=== PATIENT | male | born 1955 | race Caucasian/White ===

== ENCOUNTER 2023-03-31 09:23 | Inpatient (IN) | payer MEDICARE ==
[~2023-03-31] VITALS: Ht 190.5 cm; Wt 113.1 kg
[2023-03-31 09:58] LABS: BASOPHILS # (AUTO) 0.1 (0.0-0.1); BASOPHILS % 0.5 % (0.0-1.0); EOSINOPHILS # (AUTO) 0.1 (0.0-0.4); EOSINOPHILS % 0.7 % (0.0-6.0); HEMATOCRIT 36.4 % (38.2-49.6); HEMOGLOBIN 11.8 g/dL (14.0-18.0); LYMPHOCYTES # (AUTO) 1.6 (1.0-3.2); MEAN CORPUSCULAR HEMOGLOBIN 29.9 pg (28-32); MEAN CORPUSCULAR HGB CONC 32.4 g/dL (31-35); MEAN CORPUSCULAR VOLUME 92.4 fL (81-99); MONOCYTES # (AUTO) 1.8 (0.2-0.8); MONOCYTES % 10.5 % (4.4-11.3); NEUTROPHILS # (AUTO) 13.5 (2.1-6.9); NEUTROPHILS % 77.8 % (38.7-80.0); PLATELET COUNT 95 x10e3/uL (140-360); RED BLOOD COUNT 3.94 x10e6/uL (4.3-5.7); RED CELL DISTRIBUTION WIDTH 13.1 % (11.7-14.4)
[2023-03-31 10:16] LABS: ALBUMIN 3.4 g/dL (3.5-5.0); ALBUMIN/GLOBULIN RATIO 0.8 (0.8-2.0); ANION GAP 15.2 mmol/L (8-16); CALCIUM 9.3 mg/dL (8.4-10.2); CREATININE, SERUM 2.02 mg/dL (0.72-1.25); POTASSIUM 4.2 mmol/L (3.5-5.1)
[2023-03-31 10:25] LABS: INR 1.34; PROTHROMBIN TIME 17.1 seconds (11.9-14.5)
[2023-03-31 10:26] LABS: PARTIAL THROMBOPLASTIN TIME 34.6 seconds (23.8-35.5)
[2023-03-31] MEDS ORDERED: HEPARIN SOD (PORCINE) 5,000 UNIT/ML VIAL IV ONE (11:00)
[2023-03-31] MEDS ORDERED: SODIUM CHLORIDE FLUSH 10 ML SYR INJ PRN (11:00)
[2023-03-31] MEDS ORDERED: SODIUM CHLORIDE 0.9% 1000ML 1,000 ML ONE (11:12)
[2023-03-31] MEDS ORDERED: HEPARIN 25,000 UNIT DRIP IV ONE (11:13)
[2023-03-31] MEDS: HEPARIN 25,000 UNIT/D5W 250ML 1,500 UNIT in DEXTROSE 5% 250ML 250 ML IV SCH (11:33)
[2023-03-31] MEDS: HYDROCODONE/APAP 5MG-325MG TAB PO PRN (11:34)
[2023-03-31] MEDS: Morphine 2mg Syringe 2 MG/ML SYR IV PRN ×3 (11:34→18:54)
[2023-03-31] MEDS: ONDANSETRON HCL INJ 2MG/ML 2ML 2 MG/ML VIAL IV PRN ×2 (11:34→14:26)
[2023-03-31 14:08] VITALS: BP 109/71; PULSE 60; RESP 18; TEMP 98.1; O2SAT 99
[2023-03-31] MEDS ORDERED: ACETAMINOPHEN 325 MG TAB PO PRN (14:45)
[2023-03-31] MEDS ORDERED: CLONIDINE HCL 0.1 MG TAB PO PRN (14:45)
[2023-03-31] MEDS ORDERED: TENORMIN25 MG PO (14:55)
[2023-03-31 15:04] VITALS: BP 109/71; PULSE 60; RESP 20; TEMP 98.1; O2SAT 99
[2023-03-31 15:19] VITALS: BP 109/71; PULSE 60; RESP 20; TEMP 98.1; O2SAT 99
[2023-03-31 15:49] VITALS: BP 125/67; PULSE 60; RESP 18; TEMP 98.1; O2SAT 96
[2023-03-31] MEDS ORDERED: SODIUM CHLORIDE 0.9% 250ML 250 ML ONE (16:18)
[2023-03-31] MEDS ORDERED: LORAZEPAM 0.5 MG TAB PO PRN (16:30)
[2023-03-31] MEDS ORDERED: MELATONIN 5 MG TABLET PO PRN (16:30)
[2023-03-31 16:46] LABS: CLARITY,URINE SL CLOUDY (CLEAR); COLOR,URINE AMBER (YELLOW); KETONES,URINE NEGATIVE (NEGATIVE); LEUKOCYTE ESTERASE ,URINE TRACE (NEGATIVE); NITRITE,URINE NEGATIVE (NEGATIVE); PROTEIN,URINE DIPSTICK 2+ (NEGATIVE); URINE UROBILINOGEN 2 mg/dL (0.2 - 1)
[2023-03-31 16:57] LABS: BACTERIA,URINE FEW /HPF; RBC,URINE >50 /HPF (0-5); WBC,URINE (MAN) 0-5 /HPF (0-5)
[2023-03-31 20:02] VITALS: BP 123/96; PULSE 64; RESP 18; TEMP 98.6; O2SAT 99
[2023-03-31] MEDS: ATENOLOL 50 MG TAB PO SCH (20:23)
[2023-04-01] VITALS (7 sets, daily range): BP systolic 108–132; BP diastolic 63–75; PULSE 54–102; RESP 16–20; TEMP 97.6–98.9; O2SAT 97–100
[2023-04-01] MEDS: Morphine 2mg Syringe 2 MG/ML SYR IV PRN ×2 (03:57→10:15)
[2023-04-01 07:22] LABS: BASOPHILS # (AUTO) 0.1 (0.0-0.1); BASOPHILS % 0.6 % (0.0-1.0); EOSINOPHILS # (AUTO) 0.3 (0.0-0.4); EOSINOPHILS % 2.1 % (0.0-6.0); HEMOGLOBIN 9.6 g/dL (14.0-18.0); LYMPHOCYTES # (AUTO) 1.7 (1.0-3.2); LYMPHOCYTES % 13.4 % (18.0-39.1); MEAN CORPUSCULAR HEMOGLOBIN 29.8 pg (28-32); MEAN CORPUSCULAR VOLUME 93.2 fL (81-99); MONOCYTES # (AUTO) 1.4 (0.2-0.8); MONOCYTES % 11.5 % (4.4-11.3); NEUTROPHILS # (AUTO) 8.9 (2.1-6.9); NEUTROPHILS % 71.2 % (38.7-80.0); PLATELET COUNT 84 x10e3/uL (140-360); RED BLOOD COUNT 3.22 x10e6/uL (4.3-5.7); RED CELL DISTRIBUTION WIDTH 13.2 % (11.7-14.4)
[2023-04-01 07:38] LABS: ALBUMIN 2.7 g/dL (3.5-5.0); ALBUMIN/GLOBULIN RATIO 0.7 (0.8-2.0); ANION GAP 13.4 mmol/L (8-16); CALCIUM 8.4 mg/dL (8.4-10.2); CREATININE, SERUM 1.89 mg/dL (0.72-1.25); POTASSIUM 4.4 mmol/L (3.5-5.1)
[2023-04-01] MEDS: HEPARIN 25,000 UNIT/D5W 250ML 1,500 UNIT in DEXTROSE 5% 250ML 250 ML IV SCH (10:20)
[2023-04-01] MEDS: DOCUSATE SODIUM 100 MG CAP PO SCH (16:23)
[2023-04-01] MEDS: HYDROCODONE/APAP 5MG-325MG TAB PO PRN ×2 (16:24→21:13)
[2023-04-01] MEDS: ATENOLOL 50 MG TAB PO SCH ×2 (21:00→21:14)
[2023-04-02] VITALS (8 sets, daily range): BP systolic 116–151; BP diastolic 60–86; PULSE 55–75; RESP 16–20; TEMP 97.5–98.5; O2SAT 97–100
[2023-04-02] MEDS: HYDROCODONE/APAP 5MG-325MG TAB PO PRN ×3 (04:56→21:26)
[2023-04-02] MEDS: HEPARIN 25,000 UNIT/D5W 250ML 1,500 UNIT in DEXTROSE 5% 250ML 250 ML IV SCH ×2 (05:04→21:20)
[2023-04-02 06:50] LABS: BASOPHILS # (AUTO) 0.1 (0.0-0.1); BASOPHILS % 0.8 % (0.0-1.0); EOSINOPHILS # (AUTO) 0.3 (0.0-0.4); HEMOGLOBIN 10.3 g/dL (14.0-18.0); LYMPHOCYTES # (AUTO) 1.3 (1.0-3.2); LYMPHOCYTES % 12.2 % (18.0-39.1); MEAN CORPUSCULAR HEMOGLOBIN 29.8 pg (28-32); MEAN CORPUSCULAR HGB CONC 33.2 g/dL (31-35); MEAN CORPUSCULAR VOLUME 89.6 fL (81-99); MONOCYTES # (AUTO) 1.2 (0.2-0.8); MONOCYTES % 10.9 % (4.4-11.3); NEUTROPHILS # (AUTO) 7.5 (2.1-6.9); NEUTROPHILS % 71.3 % (38.7-80.0); PLATELET COUNT 134 x10e3/uL (140-360); RED BLOOD COUNT 3.46 x10e6/uL (4.3-5.7); RED CELL DISTRIBUTION WIDTH 13.1 % (11.7-14.4)
[2023-04-02 06:53] LABS: ANION GAP 12.9 mmol/L (8-16); CALCIUM 8.7 mg/dL (8.4-10.2); CREATININE, SERUM 1.73 mg/dL (0.72-1.25); POTASSIUM 3.9 mmol/L (3.5-5.1)
[2023-04-02] MEDS: DOCUSATE SODIUM 100 MG CAP PO SCH ×2 (09:47→16:46)
[2023-04-02] MEDS ORDERED: TRAZODONE HCL 50 MG TAB PO PRN (19:00)
[2023-04-02] MEDS: ATENOLOL 50 MG TAB PO SCH (21:10)
[2023-04-03] VITALS (7 sets, daily range): BP systolic 111–130; BP diastolic 52–91; PULSE 55–65; RESP 16–18; TEMP 97.7–98.3; O2SAT 98–100
[2023-04-03 06:50] LABS: BASOPHILS # (AUTO) 0.1 (0.0-0.1); EOSINOPHILS # (AUTO) 0.3 (0.0-0.4); EOSINOPHILS % 3.2 % (0.0-6.0); HEMATOCRIT 29.3 % (38.2-49.6); HEMOGLOBIN 9.6 g/dL (14.0-18.0); LYMPHOCYTES # (AUTO) 1.6 (1.0-3.2); LYMPHOCYTES % 14.9 % (18.0-39.1); MEAN CORPUSCULAR HEMOGLOBIN 29.6 pg (28-32); MEAN CORPUSCULAR HGB CONC 32.8 g/dL (31-35); MEAN CORPUSCULAR VOLUME 90.4 fL (81-99); MONOCYTES # (AUTO) 1.1 (0.2-0.8); MONOCYTES % 9.9 % (4.4-11.3); NEUTROPHILS # (AUTO) 7.4 (2.1-6.9); NEUTROPHILS % 68.9 % (38.7-80.0); PLATELET COUNT 168 x10e3/uL (140-360); RED BLOOD COUNT 3.24 x10e6/uL (4.3-5.7); RED CELL DISTRIBUTION WIDTH 12.8 % (11.7-14.4)
[2023-04-03 07:23] LABS: ANION GAP 11.3 mmol/L (8-16); CALCIUM 8.7 mg/dL (8.4-10.2); CREATININE, SERUM 1.46 mg/dL (0.72-1.25); POTASSIUM 4.3 mmol/L (3.5-5.1)
[2023-04-03] MEDS: DOCUSATE SODIUM 100 MG CAP PO SCH ×2 (09:00→16:29)
[2023-04-03] MEDS: HEPARIN 25,000 UNIT/D5W 250ML 1,500 UNIT in DEXTROSE 5% 250ML 250 ML IV SCH (16:30)
[2023-04-03] MEDS: ATENOLOL 50 MG TAB PO SCH (21:47)
[2023-04-03] MEDS: HYDROCODONE/APAP 5MG-325MG TAB PO PRN (22:16)
[2023-04-04] VITALS (8 sets, daily range): BP systolic 122–143; BP diastolic 67–87; PULSE 53–66; RESP 18–19; TEMP 97.6–98.3; O2SAT 97–100
[2023-04-04 05:58] LABS: BASOPHILS # (AUTO) 0.1 (0.0-0.1); BASOPHILS % 0.9 % (0.0-1.0); EOSINOPHILS # (AUTO) 0.4 (0.0-0.4); EOSINOPHILS % 3.9 % (0.0-6.0); HEMATOCRIT 30.2 % (38.2-49.6); HEMOGLOBIN 9.8 g/dL (14.0-18.0); LYMPHOCYTES # (AUTO) 1.8 (1.0-3.2); MEAN CORPUSCULAR HEMOGLOBIN 29.2 pg (28-32); MEAN CORPUSCULAR HGB CONC 32.5 g/dL (31-35); MEAN CORPUSCULAR VOLUME 89.9 fL (81-99); MONOCYTES # (AUTO) 1.1 (0.2-0.8); MONOCYTES % 9.2 % (4.4-11.3); NEUTROPHILS # (AUTO) 7.7 (2.1-6.9); NEUTROPHILS % 67.1 % (38.7-80.0); PLATELET COUNT 191 x10e3/uL (140-360); RED BLOOD COUNT 3.36 x10e6/uL (4.3-5.7); RED CELL DISTRIBUTION WIDTH 13.2 % (11.7-14.4)
[2023-04-04 06:24] LABS: ANION GAP 11.3 mmol/L (8-16); CALCIUM 8.9 mg/dL (8.4-10.2); CREATININE, SERUM 1.48 mg/dL (0.72-1.25); POTASSIUM 4.3 mmol/L (3.5-5.1)
[2023-04-04] MEDS: HEPARIN 25,000 UNIT/D5W 250ML 1,500 UNIT in DEXTROSE 5% 250ML 250 ML IV SCH ×4 (07:14→23:27)
[2023-04-04] MEDS: DOCUSATE SODIUM 100 MG CAP PO SCH ×2 (09:36→16:45)
[2023-04-04] MEDS ORDERED: HEPARIN 25,000 UNIT/D5W 250ML 1,500 UNIT in DEXTROSE 5% 250ML 250 ML IV SCH (12:00)
[2023-04-04] MEDS: HYDROCODONE/APAP 5MG-325MG TAB PO PRN ×2 (13:12→20:05)
[2023-04-04] MEDS ORDERED: APIXABAN 5 MG TABLET PO SCH (17:00)
[2023-04-05 01:59] VITALS: BP 122/77; PULSE 58; RESP 18; TEMP 97.4; O2SAT 99
[2023-04-05 05:10] VITALS: BP 144/71; PULSE 64; RESP 17; TEMP 97.7; O2SAT 100
[2023-04-05 05:31] LABS: BASOPHILS # (AUTO) 0.1 (0.0-0.1); EOSINOPHILS # (AUTO) 0.4 (0.0-0.4); EOSINOPHILS % 3.8 % (0.0-6.0); HEMATOCRIT 31.2 % (38.2-49.6); HEMOGLOBIN 10.2 g/dL (14.0-18.0); LYMPHOCYTES # (AUTO) 2.2 (1.0-3.2); LYMPHOCYTES % 19.2 % (18.0-39.1); MEAN CORPUSCULAR HEMOGLOBIN 29.6 pg (28-32); MEAN CORPUSCULAR HGB CONC 32.7 g/dL (31-35); MEAN CORPUSCULAR VOLUME 90.4 fL (81-99); MONOCYTES # (AUTO) 1.1 (0.2-0.8); MONOCYTES % 9.1 % (4.4-11.3); NEUTROPHILS # (AUTO) 7.2 (2.1-6.9); NEUTROPHILS % 62.2 % (38.7-80.0); PLATELET COUNT 180 x10e3/uL (140-360); RED BLOOD COUNT 3.45 x10e6/uL (4.3-5.7); RED CELL DISTRIBUTION WIDTH 13.2 % (11.7-14.4)
[2023-04-05 05:52] LABS: ALBUMIN 2.8 g/dL (3.5-5.0); ALBUMIN/GLOBULIN RATIO 0.7 (0.8-2.0); ANION GAP 10.4 mmol/L (8-16); CALCIUM 8.8 mg/dL (8.4-10.2); CREATININE, SERUM 1.52 mg/dL (0.72-1.25); POTASSIUM 4.4 mmol/L (3.5-5.1)
[2023-04-05 06:06] LABS: THYROID STIMULATING HORMONE 0.991 uIU/mL (0.350-4.940)
[2023-04-05 08:45] VITALS: BP 126/64; PULSE 64; RESP 18; TEMP 98; O2SAT 98
[2023-04-05 09:14] VITALS: BP 126/64; PULSE 64; RESP 18; TEMP 98; O2SAT 98
[2023-04-05] MEDS: DOCUSATE SODIUM 100 MG CAP PO SCH (10:00)
[2023-04-05] MEDS: HYDROCODONE/APAP 5MG-325MG TAB PO PRN (10:48)
[2023-04-05] MEDS ORDERED: LEVOFLOXACIN 250MG/D5W 50ML 50 ML IV SCH (11:00)
[2023-04-05] MEDS ORDERED: ONDANSETRON HCL 4 MG ORAL DISINTEGRATING TAB PO PRN (11:45)
[2023-04-05 11:51] VITALS: BP 143/76; PULSE 67; RESP 18; TEMP 97.2; O2SAT 99
[2023-04-05] MEDS ORDERED: LEVOFLOXACIN250 MG PO (12:12)
[2023-04-05] MEDS ORDERED: ELIQUIS5 MG PO (12:12)
[2023-04-05] MEDS ORDERED: APIXABAN 5 MG TABLET PO SCH (17:00)
== END 2023-04-05 13:10 | disposition home or self-care (01) | DRG 300 ==
LOC: ER 09:40 → ERHOLD 10:58 → MED/SURG3 14:00 → OBSVTOIN 04-02 09:48
PROVIDERS: ADMIT Internal Medicine; ATTEND Internal Medicine
DX: I82.411 Acute embolism and thrombosis of right femoral vein (principal); E87.1 Hypo-osmolality and hyponatremia; T83.511A Infection and inflammatory reaction due to indwelling urethral catheter, initial encounter; N13.2 Hydronephrosis with renal and ureteral calculous obstruction; N39.0 Urinary tract infection, site not specified; N17.9 Acute kidney failure, unspecified; I82.431 Acute embolism and thrombosis of right popliteal vein; I12.9 Hypertensive chronic kidney disease with stage 1 through stage 4 chronic kidney disease, or unspecified chronic kidney disease; N18.30 Chronic kidney disease, stage 3 unspecified; R16.1 Splenomegaly, not elsewhere classified; B96.89 Other specified bacterial agents as the cause of diseases classified elsewhere; N40.1 Benign prostatic hyperplasia with lower urinary tract symptoms; R33.8 Other retention of urine; R97.20 Elevated prostate specific antigen [PSA]; D69.6 Thrombocytopenia, unspecified; D63.1 Anemia in chronic kidney disease; E66.9 Obesity, unspecified; Z68.31 Body mass index [BMI] 31.0-31.9, adult; Z20.822 Contact with and (suspected) exposure to COVID-19; Z79.01 Long term (current) use of anticoagulants; Z96.641 Presence of right artificial hip joint
CPT/HCPCS: 36415; 74176; 80048; 80053; 81001; 84443; 85025; 85610; 85730; 87086; 87186; 93005; 93306; 93971; 96361; 96365; 99284; G0378; J0696; J1644; J1956; J2270; J2405; J7030; J7050

== ENCOUNTER 2023-09-21 07:12 | Inpatient (IN) | payer MEDICARE ==
[2023-09-20 11:10] LABS: BASOPHILS # (AUTO) 0.1 (0.0-0.1); BASOPHILS % 0.9 % (0.0-1.0); EOSINOPHILS # (AUTO) 0.3 (0.0-0.4); HEMATOCRIT 41.5 % (38.2-49.6); HEMOGLOBIN 13.8 g/dL (14.0-18.0); LYMPHOCYTES # (AUTO) 1.9 (1.0-3.2); LYMPHOCYTES % 17.8 % (18.0-39.1); MEAN CORPUSCULAR HEMOGLOBIN 29.5 pg (28-32); MEAN CORPUSCULAR HGB CONC 33.3 g/dL (31-35); MEAN CORPUSCULAR VOLUME 88.7 fL (81-99); MONOCYTES # (AUTO) 0.7 (0.2-0.8); MONOCYTES % 6.3 % (4.4-11.3); NEUTROPHILS # (AUTO) 7.4 (2.1-6.9); NEUTROPHILS % 71.1 % (38.7-80.0); PLATELET COUNT 151 x10e3/uL (140-360); RED BLOOD COUNT 4.68 x10e6/uL (4.3-5.7); RED CELL DISTRIBUTION WIDTH 14.6 % (11.7-14.4)
[2023-09-20 13:34] LABS: ANION GAP 12.1 mmol/L (8-16); CALCIUM 9.1 mg/dL (8.4-10.2); CREATININE, SERUM 1.26 mg/dL (0.72-1.25); POTASSIUM 4.1 mmol/L (3.5-5.1)
[~2023-09-21] VITALS: Ht 185.4 cm; Wt 113.4 kg
[~2023-09-21 07:12] MED LIST: ELIQUIS5 MG PO; FINASTERIDE5 MG PO; FLOMAX0.4 MG PO; IRBESARTAN150 MG PO; LEVOFLOXACIN250 MG PO; TENORMIN25 MG PO
[2023-09-21] MEDS ORDERED: SODIUM CHLORIDE 0.9% 1000ML 1,000 ML ONE (07:21)
[2023-09-21] MEDS ORDERED: GENTAMICIN 80MG/NS 100 ML 200 ML IV ONE (07:36)
[2023-09-21] MEDS ORDERED: LEVOFLOXACIN 500MG/D5W 100ML 100 ML IV ONE (07:37)
[2023-09-21] MEDS ORDERED: IOPAMIDOL 610MG/1ML 300 MG/ML VIAL IV ONE (10:52)
[2023-09-21] MEDS ORDERED: KETOROLAC TROMETHAMINE 30 MG/ML VIAL ONE (11:50)
[2023-09-21] MEDS ORDERED: LIDOCAINE HCL 2% LOCAL INJ 5 ML SDV VIAL INJ ONE (11:50)
[2023-09-21] MEDS ORDERED: SEVOFLURANE INHAL SOLN 250 ML PEN BTL ONE (11:50)
[2023-09-21] MEDS ORDERED: DEXAMETHASONE SOD PHOS INJ 4 MG/ML SDV ONE (11:50)
[2023-09-21] MEDS ORDERED: EPHEDRINE SULFATE INJ 50 MG/ML VIAL ONE (11:50)
[2023-09-21] MEDS ORDERED: PROPOFOL IV EMULSION 10 MG/ML 20 ML VIAL ONE (11:50)
[2023-09-21] MEDS ORDERED: ONDANSETRON HCL INJ 2MG/ML 2ML 2 MG/ML VIAL ONE (11:50)
[2023-09-21] MEDS ORDERED: MIDAZOLAM HCL 2 MG/2 ML VIAL ONE (12:13)
[2023-09-21] MEDS ORDERED: Morphine 10mg syringe 10 MG/ML INJ ONE (12:13)
[2023-09-21] MEDS ORDERED: FENTANYL CITRATE/PF 100MCG/2 ML INJ ONE ×2 (12:13→13:10)
[2023-09-21] MEDS ORDERED: HYDROMORPHONE 1MG/1ML INJ ONE (13:01)
[2023-09-21] MEDS ORDERED: Morphine 4mg INJECTION 4 MG/ML INJ ONE ×2 (13:27→14:02)
[2023-09-21] MEDS ORDERED: PHENAZOPYRIDINE HCL 100 MG TAB PO PRN (13:45)
[2023-09-21] MEDS ORDERED: DIPHENHYDRAMINE HCL 25 MG CAP PO PRN (13:45)
[2023-09-21] MEDS ORDERED: ONDANSETRON HCL INJ 2MG/ML 2ML 2 MG/ML VIAL IV PRN (13:45)
[2023-09-21 14:23] LABS: BASOPHILS # (AUTO) 0.1 (0.0-0.1); BASOPHILS % 0.5 % (0.0-1.0); EOSINOPHILS # (AUTO) 0.1 (0.0-0.4); EOSINOPHILS % 0.7 % (0.0-6.0); HEMATOCRIT 39.6 % (38.2-49.6); HEMOGLOBIN 12.9 g/dL (14.0-18.0); LYMPHOCYTES # (AUTO) 0.8 (1.0-3.2); LYMPHOCYTES % 5.5 % (18.0-39.1); MEAN CORPUSCULAR HEMOGLOBIN 29.6 pg (28-32); MEAN CORPUSCULAR HGB CONC 32.6 g/dL (31-35); MEAN CORPUSCULAR VOLUME 90.8 fL (81-99); MONOCYTES # (AUTO) 0.2 (0.2-0.8); MONOCYTES % 1.8 % (4.4-11.3); NEUTROPHILS # (AUTO) 12.3 (2.1-6.9); NEUTROPHILS % 90.3 % (38.7-80.0); PLATELET COUNT 110 x10e3/uL (140-360); RED BLOOD COUNT 4.36 x10e6/uL (4.3-5.7); RED CELL DISTRIBUTION WIDTH 14.7 % (11.7-14.4); WHITE BLOOD COUNT 13.58 x10e3/uL (4.8-10.8)
[2023-09-21 14:29] LABS: ANION GAP 10.1 mmol/L (8-16); CALCIUM 8.1 mg/dL (8.4-10.2); CREATININE, SERUM 1.11 mg/dL (0.72-1.25); POTASSIUM 4.1 mmol/L (3.5-5.1)
[2023-09-21 15:02] VITALS: BP 125/89; PULSE 103; RESP 22; TEMP 97.5; O2SAT 98
[2023-09-21 15:03] VITALS: BP 125/89; PULSE 103; RESP 22; TEMP 97.5; O2SAT 98
[2023-09-21] MEDS: ACETAMINOPHEN/CODEINE 300MG - 30MG TAB PO PRN ×2 (15:22→19:38)
[2023-09-21] MEDS: SODIUM CHLORIDE 0.9% 1000ML 1,000 ML IV SCH ×2 (15:29→23:45)
[2023-09-21 16:46] VITALS: PULSE 113; RESP 18; O2SAT 97
[2023-09-21] MEDS ORDERED: ACETAMINOPHEN 1000 MG/100 ML IV PRN (17:00)
[2023-09-21] MEDS: SENNA-S TABLET PO SCH (18:00)
[2023-09-21 20:00] VITALS: BP 140/87; PULSE 89; RESP 20; TEMP 97.5; O2SAT 100
[2023-09-21 20:45] VITALS: BP 140/87; PULSE 89; RESP 20; TEMP 97.5; O2SAT 100
[2023-09-21 21:55] VITALS: PULSE 90; RESP 18; O2SAT 97
[2023-09-21] MEDS: PHENAZOPYRIDINE HCL 100 MG TAB PO PRN (21:56)
[2023-09-21] MEDS: Morphine 2mg Syringe 2 MG/ML SYR IV PRN (23:01)
[2023-09-22] VITALS (11 sets, daily range): BP systolic 117–151; BP diastolic 71–96; PULSE 65–103; RESP 18–21; TEMP 97.5–98.9; O2SAT 97–100
[2023-09-22] MEDS: Morphine 2mg Syringe 2 MG/ML SYR IV PRN ×3 (02:39→20:07)
[2023-09-22] MEDS: SODIUM CHLORIDE 0.9% 1000ML 1,000 ML IV SCH ×2 (04:27→17:19)
[2023-09-22 05:52] LABS: BASOPHILS # (AUTO) 0.1 (0.0-0.1); BASOPHILS % 0.3 % (0.0-1.0); EOSINOPHILS % 0.1 % (0.0-6.0); HEMATOCRIT 32.4 % (38.2-49.6); HEMOGLOBIN 10.5 g/dL (14.0-18.0); LYMPHOCYTES # (AUTO) 1.5 (1.0-3.2); LYMPHOCYTES % 10.7 % (18.0-39.1); MEAN CORPUSCULAR HEMOGLOBIN 29.6 pg (28-32); MEAN CORPUSCULAR HGB CONC 32.4 g/dL (31-35); MEAN CORPUSCULAR VOLUME 91.3 fL (81-99); MONOCYTES # (AUTO) 1.2 (0.2-0.8); MONOCYTES % 8.6 % (4.4-11.3); NEUTROPHILS # (AUTO) 11.4 (2.1-6.9); NEUTROPHILS % 79.3 % (38.7-80.0); PLATELET COUNT 112 x10e3/uL (140-360); RED BLOOD COUNT 3.55 x10e6/uL (4.3-5.7); RED CELL DISTRIBUTION WIDTH 15.1 % (11.7-14.4); WHITE BLOOD COUNT 14.35 x10e3/uL (4.8-10.8)
[2023-09-22 06:39] LABS: ANION GAP 12.4 mmol/L (8-16); CALCIUM 7.6 mg/dL (8.4-10.2); CREATININE, SERUM 1.71 mg/dL (0.72-1.25); POTASSIUM 4.4 mmol/L (3.5-5.1)
[2023-09-22] MEDS: TAMSULOSIN HCL 0.4 MG CAP PO SCH (11:01)
[2023-09-22] MEDS: FINASTERIDE 5 MG TAB PO SCH (11:01)
[2023-09-22] MEDS: SENNA-S TABLET PO SCH ×2 (11:01→13:33)
[2023-09-22 11:04] LABS: CHOL/HDL RATIO 5.5 (3.9-4.7)
[2023-09-22] MEDS ORDERED: ONDANSETRON HCL 4 MG ORAL DISINTEGRATING TAB PO PRN (11:30)
[2023-09-23] VITALS (9 sets, daily range): BP systolic 138–164; BP diastolic 75–90; PULSE 77–94; RESP 18–20; TEMP 97.5–100; O2SAT 95–100
[2023-09-23] MEDS: Morphine 2mg Syringe 2 MG/ML SYR IV PRN ×6 (03:42→22:56)
[2023-09-23] MEDS: SODIUM CHLORIDE 0.9% 1000ML 1,000 ML IV SCH ×3 (03:42→22:56)
[2023-09-23 06:05] LABS: BASOPHILS # (AUTO) 0.1 (0.0-0.1); BASOPHILS % 0.5 % (0.0-1.0); EOSINOPHILS # (AUTO) 0.2 (0.0-0.4); EOSINOPHILS % 2.1 % (0.0-6.0); HEMATOCRIT 27.9 % (38.2-49.6); HEMOGLOBIN 8.9 g/dL (14.0-18.0); LYMPHOCYTES # (AUTO) 1.4 (1.0-3.2); MEAN CORPUSCULAR HEMOGLOBIN 29.7 pg (28-32); MEAN CORPUSCULAR HGB CONC 31.9 g/dL (31-35); MONOCYTES % 9.9 % (4.4-11.3); NEUTROPHILS # (AUTO) 7.3 (2.1-6.9); NEUTROPHILS % 72.8 % (38.7-80.0); PLATELET COUNT 89 x10e3/uL (140-360); RED CELL DISTRIBUTION WIDTH 15.5 % (11.7-14.4); WHITE BLOOD COUNT 9.98 x10e3/uL (4.8-10.8)
[2023-09-23 06:38] LABS: CALCIUM 7.9 mg/dL (8.4-10.2); CREATININE, SERUM 1.16 mg/dL (0.72-1.25)
[2023-09-23 06:57] LABS: ANION GAP 8.4 mmol/L (8-16); POTASSIUM 4.4 mmol/L (3.5-5.1)
[2023-09-23] MEDS: SENNA-S TABLET PO SCH ×2 (08:33→17:17)
[2023-09-23] MEDS: PHENAZOPYRIDINE HCL 100 MG TAB PO PRN ×2 (08:33→22:55)
[2023-09-23] MEDS: FINASTERIDE 5 MG TAB PO SCH (08:33)
[2023-09-23] MEDS: TAMSULOSIN HCL 0.4 MG CAP PO SCH (08:33)
[2023-09-24] VITALS (7 sets, daily range): BP systolic 150–175; BP diastolic 75–94; PULSE 73–80; RESP 16–19; TEMP 98.2–98.5; O2SAT 96–99
[2023-09-24 05:40] LABS: BASOPHILS # (AUTO) 0.1 (0.0-0.1); BASOPHILS % 0.7 % (0.0-1.0); EOSINOPHILS # (AUTO) 0.2 (0.0-0.4); HEMATOCRIT 26.5 % (38.2-49.6); LYMPHOCYTES # (AUTO) 1.5 (1.0-3.2); LYMPHOCYTES % 17.4 % (18.0-39.1); MEAN CORPUSCULAR HEMOGLOBIN 29.3 pg (28-32); MEAN CORPUSCULAR HGB CONC 32.1 g/dL (31-35); MEAN CORPUSCULAR VOLUME 91.4 fL (81-99); MONOCYTES # (AUTO) 0.8 (0.2-0.8); MONOCYTES % 9.5 % (4.4-11.3); NEUTROPHILS # (AUTO) 6.2 (2.1-6.9); NEUTROPHILS % 69.5 % (38.7-80.0); PLATELET COUNT 69 x10e3/uL (140-360); RED CELL DISTRIBUTION WIDTH 15.1 % (11.7-14.4); WHITE BLOOD COUNT 8.87 x10e3/uL (4.8-10.8)
[2023-09-24 05:55] LABS: HEMOGLOBIN 8.6 g/dL (14.0-18.0)
[2023-09-24] MEDS ORDERED: PIPERACILLIN/TAZOBACTAM SOD 2.25 GM VIAL ONE (06:06)
[2023-09-24 06:07] LABS: ANION GAP 9.2 mmol/L (8-16); CALCIUM 7.9 mg/dL (8.4-10.2); CREATININE, SERUM 1.05 mg/dL (0.72-1.25); POTASSIUM 4.2 mmol/L (3.5-5.1)
[2023-09-24] MEDS: SODIUM CHLORIDE 0.9% 1000ML 1,000 ML IV SCH ×2 (08:32→16:43)
[2023-09-24] MEDS: TAMSULOSIN HCL 0.4 MG CAP PO SCH (08:33)
[2023-09-24] MEDS: SENNA-S TABLET PO SCH ×2 (08:33→16:42)
[2023-09-24] MEDS: FINASTERIDE 5 MG TAB PO SCH (08:33)
[2023-09-24] MEDS: Morphine 2mg Syringe 2 MG/ML SYR IV PRN ×5 (11:19→23:54)
[2023-09-24] MEDS: PHENAZOPYRIDINE HCL 100 MG TAB PO PRN (18:24)
[2023-09-24] MEDS: ALPRAZOLAM 0.25 MG TAB PO PRN (20:27)
[2023-09-25] VITALS (9 sets, daily range): BP systolic 141–167; BP diastolic 72–86; PULSE 69–83; RESP 16–20; TEMP 97.9–99.3; O2SAT 96–99
[2023-09-25 05:51] LABS: BASOPHILS # (AUTO) 0.1 (0.0-0.1); BASOPHILS % 1.1 % (0.0-1.0); EOSINOPHILS # (AUTO) 0.2 (0.0-0.4); EOSINOPHILS % 2.8 % (0.0-6.0); HEMATOCRIT 29.7 % (38.2-49.6); LYMPHOCYTES # (AUTO) 1.8 (1.0-3.2); LYMPHOCYTES % 22.4 % (18.0-39.1); MEAN CORPUSCULAR HEMOGLOBIN 29.6 pg (28-32); MEAN CORPUSCULAR HGB CONC 30.3 g/dL (31-35); MEAN CORPUSCULAR VOLUME 97.7 fL (81-99); MONOCYTES # (AUTO) 0.9 (0.2-0.8); MONOCYTES % 10.8 % (4.4-11.3); NEUTROPHILS # (AUTO) 4.9 (2.1-6.9); NEUTROPHILS % 61.6 % (38.7-80.0); PLATELET COUNT 80 x10e3/uL (140-360); RED BLOOD COUNT 3.04 x10e6/uL (4.3-5.7); WHITE BLOOD COUNT 7.87 x10e3/uL (4.8-10.8)
[2023-09-25 06:10] LABS: ANION GAP 10.8 mmol/L (8-16); CALCIUM 8.3 mg/dL (8.4-10.2); CREATININE, SERUM 0.97 mg/dL (0.72-1.25); POTASSIUM 3.8 mmol/L (3.5-5.1)
[2023-09-25] MEDS: SODIUM CHLORIDE 0.9% 1000ML 1,000 ML IV SCH ×3 (07:45→17:07)
[2023-09-25] MEDS: SENNA-S TABLET PO SCH ×2 (08:47→16:08)
[2023-09-25] MEDS: TAMSULOSIN HCL 0.4 MG CAP PO SCH (08:47)
[2023-09-25] MEDS: FINASTERIDE 5 MG TAB PO SCH (08:47)
[2023-09-25] MEDS ORDERED: BISACODYL 10 MG SUPP PR ONE (10:00)
[2023-09-25] MEDS: PHENAZOPYRIDINE HCL 100 MG TAB PO PRN (12:27)
[2023-09-25] MEDS: Morphine 2mg Syringe 2 MG/ML SYR IV PRN ×2 (16:10→19:33)
[2023-09-25] MEDS: ALPRAZOLAM 0.25 MG TAB PO PRN (19:36)
[2023-09-26 03:29] VITALS: BP 153/79; PULSE 73; RESP 16; TEMP 98.1; O2SAT 96
[2023-09-26] MEDS: SODIUM CHLORIDE 0.9% 1000ML 1,000 ML IV SCH ×3 (06:26→21:02)
[2023-09-26 08:24] VITALS: BP 151/87; PULSE 84; RESP 20; TEMP 97.9; O2SAT 100
[2023-09-26] MEDS: FINASTERIDE 5 MG TAB PO SCH (08:41)
[2023-09-26] MEDS: PHENAZOPYRIDINE HCL 100 MG TAB PO PRN (08:41)
[2023-09-26] MEDS: SENNA-S TABLET PO SCH ×2 (08:41→16:48)
[2023-09-26] MEDS: TAMSULOSIN HCL 0.4 MG CAP PO SCH (08:41)
[2023-09-26] MEDS: Morphine 2mg Syringe 2 MG/ML SYR IV PRN ×2 (08:47→21:03)
[2023-09-26 10:41] VITALS: BP 151/87; PULSE 84; RESP 20; TEMP 97.9; O2SAT 100
[2023-09-26 11:35] VITALS: BP 145/86; PULSE 83; RESP 21; TEMP 97.8; O2SAT 99
[2023-09-26 16:26] VITALS: BP 148/82; PULSE 70; RESP 21; TEMP 97.7; O2SAT 100
[2023-09-26] MEDS: ALPRAZOLAM 0.25 MG TAB PO PRN (16:52)
[2023-09-26 20:00] VITALS: BP 158/87; PULSE 90; RESP 18; TEMP 98.2; O2SAT 100
[2023-09-26] MEDS ORDERED: ALPRAZOLAM 0.25 MG TAB PO ONE (22:15)
[2023-09-27] MEDS: Morphine 2mg Syringe 2 MG/ML SYR IV PRN ×2 (04:28→08:30)
[2023-09-27] MEDS ORDERED: PYRIDIUM100 MG PO (07:50)
[2023-09-27] MEDS ORDERED: ONDANSETRON ODT4 MG PO (07:50)
[2023-09-27] MEDS ORDERED: SENNA S TABLET1 EACH PO (07:50)
[2023-09-27 08:19] VITALS: BP 157/84; PULSE 95; RESP 21; TEMP 97.6; O2SAT 99
[2023-09-27] MEDS: ALPRAZOLAM 0.25 MG TAB PO PRN (08:30)
[2023-09-27] MEDS: SENNA-S TABLET PO SCH (08:31)
[2023-09-27] MEDS: TAMSULOSIN HCL 0.4 MG CAP PO SCH (08:31)
[2023-09-27] MEDS: FINASTERIDE 5 MG TAB PO SCH (08:31)
[2023-09-27 08:41] VITALS: BP 157/84; PULSE 95; RESP 21; TEMP 97.6; O2SAT 99
[2023-09-27] MEDS: SODIUM CHLORIDE 0.9% 1000ML 1,000 ML IV SCH (09:45)
== END 2023-09-27 11:00 | disposition home or self-care (01) | DRG 713 ==
LOC: OR 07:12 → PACU V 13:22 → MED/SURG 14:39
PROVIDERS: ADMIT Internal Medicine; ATTEND Internal Medicine
PROC: 0TCB8ZZ Extirpation of Matter from Bladder, Via Natural or Artificial Opening Endoscopic (ICD-10-PCS; 2023-09-21)
PROC: 0VT08ZZ Resection of Prostate, Via Natural or Artificial Opening Endoscopic (ICD-10-PCS; principal; 2023-09-21 11:02)
PROC: 0VB08ZX Excision of Prostate, Via Natural or Artificial Opening Endoscopic, Diagnostic (ICD-10-PCS; 2023-09-21 11:02)
PROC: BT101ZZ Fluoroscopy of Bladder using Low Osmolar Contrast (ICD-10-PCS; 2023-09-21 11:02)
DX: N40.1 Benign prostatic hyperplasia with lower urinary tract symptoms (principal); E87.20 Acidosis, unspecified; N13.30 Unspecified hydronephrosis; N13.8 Other obstructive and reflux uropathy; E66.9 Obesity, unspecified; D69.6 Thrombocytopenia, unspecified; D64.9 Anemia, unspecified; C61 Malignant neoplasm of prostate; I12.9 Hypertensive chronic kidney disease with stage 1 through stage 4 chronic kidney disease, or unspecified chronic kidney disease; N18.30 Chronic kidney disease, stage 3 unspecified; Z96.0 Presence of urogenital implants; D72.829 Elevated white blood cell count, unspecified; R39.14 Feeling of incomplete bladder emptying; R33.8 Other retention of urine; R39.16 Straining to void; R35.1 Nocturia; R97.20 Elevated prostate specific antigen [PSA]; M19.90 Unspecified osteoarthritis, unspecified site; N20.0 Calculus of kidney; Z68.33 Body mass index [BMI] 33.0-33.9, adult; Z86.718 Personal history of other venous thrombosis and embolism; Z80.42 Family history of malignant neoplasm of prostate
CPT/HCPCS: 36415; 74420; 76872; 76998; 80048; 80061; 83036; 83735; 84550; 85025; 88300; 88305; 94799; J1100; J1170; J1580; J1885; J1956; J2001; J2250; J2270; J2405; J2543; J7030; Q0162

== ENCOUNTER → 2024-06-20 | Day surgery (SDC) | payer MEDICARE ==
[2024-06-18 08:46] LABS: BASOPHILS # (AUTO) 0.1 (0.0-0.1); EOSINOPHILS # (AUTO) 0.3 (0.0-0.4); EOSINOPHILS % 3.5 % (0.0-6.0); HEMATOCRIT 44.8 % (38.2-49.6); HEMOGLOBIN 14.6 g/dL (14.0-18.0); LYMPHOCYTES # (AUTO) 1.7 (1.0-3.2); LYMPHOCYTES % 20.6 % (18.0-39.1); MEAN CORPUSCULAR HEMOGLOBIN 29.7 pg (28-32); MEAN CORPUSCULAR HGB CONC 32.6 g/dL (31-35); MEAN CORPUSCULAR VOLUME 91.2 fL (81-99); MONOCYTES # (AUTO) 0.8 (0.2-0.8); MONOCYTES % 8.9 % (4.4-11.3); NEUTROPHILS # (AUTO) 5.5 (2.1-6.9); NEUTROPHILS % 65.4 % (38.7-80.0); RED BLOOD COUNT 4.91 x10e6/uL (4.3-5.7); RED CELL DISTRIBUTION WIDTH 14.7 % (11.7-14.4); WHITE BLOOD COUNT 8.39 x10e3/uL (4.8-10.8)
[2024-06-18 08:47] LABS: PLATELET COUNT 79 x10e3/uL (140-360)
[2024-06-18 09:16] LABS: ALBUMIN/GLOBULIN RATIO 1.1 (0.8-2.0); BILIRUBIN,TOTAL 1.4 mg/dL (0.2-1.2); CALCIUM 9.5 mg/dL (8.4-10.2); CREATININE, SERUM 1.28 mg/dL (0.72-1.25); TOTAL PROTEIN 7.7 g/dL (6.5-8.1)
[~2024-06-20] MED LIST changes: +ACETAMINOPHEN 1000 MG/100 ML IV ONE; +ATENOLOL50 MG PO; +EPHEDRINE SULFATE INJ 50 MG/ML VIAL ONE; +FAMOTIDINE 20 MG/2 ML VIAL IV ONE; +FENTANYL CITRATE/PF 100MCG/2 ML INJ ONE; +HYDRALAZINE HC100 MG PO; +IOPAMIDOL 610MG/1ML 300 MG/ML VIAL IV ONE; +LIDOCAINE HCL 2% LOCAL INJ 5 ML SDV VIAL INJ ONE; +LOPRESSOR25 MG PO; +LUPRON DEPOT3.75 MG; +NIFEDIPINE ER30 M1 PO; +ONDANSETRON HCL INJ 2MG/ML 2ML 2 MG/ML VIAL ONE; +ONDANSETRON ODT4 MG PO; +PROPOFOL IV EMULSION 10 MG/ML 20 ML VIAL ONE; +PYRIDIUM100 MG PO; +SENNA S TABLET1 EACH PO; +SEVOFLURANE INHAL SOLN 250 ML PEN BTL ONE; +SODIUM BICARBO650 MG PO; +TYLENOL325 MG PO
[2024-06-20] MEDS: LACTATED RINGER'S 1,000 ML ONE (07:15)
[2024-06-20] MEDS: GENTAMICIN 80MG/NS 100 ML 200 ML IV ONE (07:15)
[2024-06-20] MEDS: CEFTRIAXONE 1 GM VIAL ONE (07:15)
[2024-06-20 11:14] VITALS: TEMP 96.9
[2024-06-20] MEDS: Morphine 4mg INJECTION 4 MG/ML INJ ONE ×2 (11:28→11:36)
[2024-06-20] MEDS: PHENAZOPYRIDINE HCL 100 MG TAB ONE (11:40)
[2024-06-20] MEDS: MIDAZOLAM HCL 2 MG/2 ML VIAL ONE (11:40)
[2024-06-20 12:03] VITALS: BP 150/67; PULSE 60; RESP 16; O2SAT 99
== END | disposition home or self-care (01) ==
LOC: OR 06:36
PROVIDERS: ATTEND Urology
DX: N20.0 Calculus of kidney (principal); N20.1 Calculus of ureter; N13.5 Crossing vessel and stricture of ureter without hydronephrosis; Z46.6 Encounter for fitting and adjustment of urinary device; C61 Malignant neoplasm of prostate; N40.0 Benign prostatic hyperplasia without lower urinary tract symptoms; N32.89 Other specified disorders of bladder; N13.30 Unspecified hydronephrosis; Z01.810 Encounter for preprocedural cardiovascular examination; Z01.812 Encounter for preprocedural laboratory examination; Z01.818 Encounter for other preprocedural examination; Z79.899 Other long term (current) drug therapy
CPT/HCPCS: 36415; 52352; 71046; 74018; 74420; 80053; 84152; 84550; 85025; 87086; 88300; 93005; C1766; C1769; J0131; J0696; J1580; J2001; J2250; J2270; J2405; J2704; J3010; J7121; Q9967